=== PATIENT | female | born 1940 | race African-American/Black ===

== ENCOUNTER 2019-11-18 13:51 | Emergency (ER) | payer OTHER ==
[~2019-11-18] VITALS: Ht 165.1 cm; Wt 72.0 kg
[2019-11-18 15:11] LABS: CHLORIDE 110 mEq/L (98-107)
[2019-11-18 15:16] LABS: HEMATOCRIT. 27.1 % (36.0-48.0); HEMOGLOBIN. 9.2 g/dL (12.0-16.0); MEAN CORPUSCULAR HEMOGLOBIN 33.2 pg (28.0-32.0); MEAN CORPUSCULAR VOLUME 97.5 fL (81.0-99.0); RED BLOOD CELL COUNT 2.77 mill/uL (4.2-5.4); RED CELL DISTRIBUTION WIDTH 15.8 % (11.6-14.6)
[2019-11-18 15:18] LABS: D-DIMER 1.17 mg/L FEU (<0.50); PROTHROMBIN TIME 11.3 sec (9.6-11.0)
[2019-11-18 16:02] LABS: PARTIAL THROMBOPLASTIN TIME < 20.0 sec (23.4-31.0)
[2019-11-18 18:48] LABS: PLATELET ESTIMATE NORMAL
[2019-11-18] MEDS ORDERED: IOHEXOL-350 100 ML BOTTLE ONE (18:57)
[2019-11-18 20:09] VITALS: BP 148/78
== END 2019-11-18 20:35 | disposition short-term general hospital (02) ==
LOC: ER 14:21
DX: R07.89 Other chest pain (principal); E11.9 Type 2 diabetes mellitus without complications; Z85.9 Personal history of malignant neoplasm, unspecified
CPT/HCPCS: 36415; 71045; 71275; 80053; 83880; 84484; 85025; 85379; 85610; 85730; 93005; 99285; Q9967

== ENCOUNTER 2020-02-04 12:00 | Emergency (ER) | payer OTHER ==
[~2020-02-04] VITALS: Ht 175.3 cm; Wt 76.0 kg
[2020-02-04 12:56] LABS: HEMATOCRIT. 32.9 % (36.0-48.0); HEMOGLOBIN. 11.2 g/dL (12.0-16.0); MEAN CORPUSCULAR HEMOGLOBIN 31.2 pg (28.0-32.0); MEAN CORPUSCULAR VOLUME 92.1 fL (81.0-99.0); PLATELET 150 x1000/uL (130-400); RED BLOOD CELL COUNT 3.57 mill/uL (4.2-5.4); RED CELL DISTRIBUTION WIDTH 15.6 % (11.6-14.6)
[2020-02-04 12:57] LABS: CHLORIDE 109 mEq/L (98-107)
[2020-02-04 13:00] LABS: INR 1.1; PROTHROMBIN TIME 11.4 sec (9.6-11.0)
[2020-02-04 13:01] LABS: ETHANOL BLOOD < 10 mg/dL
[2020-02-04 13:04] LABS: LDL CHOLESTEROL 69 mg/dL (5-100)
[2020-02-04 13:26] LABS: PLATELET ESTIMATE NORMAL
[2020-02-04] MEDS ORDERED: POTASSIUM CHLORIDE INJ 40 MEQ in DEXT 5% WATER 500 ML IV ONE (13:30)
[2020-02-04] MEDS: ASPIRIN 325MG EC TABLET PO ONE ×2 (13:30→14:45)
[2020-02-04] MEDS ORDERED: IOHEXOL-350 100 ML BOTTLE ONE (14:16)
[2020-02-04] MEDS: POTASSIUM CHLORIDE 20MEQ TABLET SR PO ONE ×2 (14:42→14:45)
[2020-02-04 16:44] VITALS: BP 113/72
== END 2020-02-04 17:07 | disposition short-term general hospital (02) ==
LOC: ER 12:00 → CANBEDREQ 16:54 → ER 17:07
DX: G45.9 Transient cerebral ischemic attack, unspecified (principal); I65.21 Occlusion and stenosis of right carotid artery; E87.6 Hypokalemia; F03.90 Unspecified dementia, unspecified severity, without behavioral disturbance, psychotic disturbance, mood disturbance, and anxiety; I10 Essential (primary) hypertension; E78.00 Pure hypercholesterolemia, unspecified
CPT/HCPCS: 36415; 70450; 70496; 70498; 71045; 80053; 80320; 82962; 83721; 84484; 85025; 85610; 93005; 96365; 99285; J3480; J7060; Q9967; G0480

== ENCOUNTER 2020-02-14 11:29 | Emergency (ER) | payer OTHER ==
[~2020-02-14] VITALS: Ht 172.7 cm; Wt 72.0 kg
[2020-02-14 12:25] LABS: EOSINOPHILS % 0.6 % (0.0-5.0); HEMATOCRIT. 32.2 % (36.0-48.0); HEMOGLOBIN. 10.9 g/dL (12.0-16.0); LYMPHOCYTES % 24.7 % (20.0-50.0); MEAN CORPUSCULAR HEMOGLOBIN 31.3 pg (28.0-32.0); MEAN CORPUSCULAR VOLUME 92.2 fL (81.0-99.0); MEAN PLATELET VOLUME 9.1 fl (7.4-10.4); MONOCYTES % 9.4 % (2.0-8.0); NEUTROPHILS % 64.3 % (40.0-76.0); PLATELET 180 x1000/uL (130-400); RED BLOOD CELL COUNT 3.49 mill/uL (4.2-5.4); RED CELL DISTRIBUTION WIDTH 16.3 % (11.6-14.6)
[2020-02-14 12:33] LABS: CHLORIDE 108 mEq/L (98-107)
[2020-02-14] MEDS ORDERED: POTASSIUM CHLORIDE 20MEQ TABLET SR PO ONE (13:00)
[2020-02-14] MEDS ORDERED: ASPIRIN 325MG EC TABLET PO ONE (13:15)
[2020-02-14] MEDS ORDERED: SODIUM CHLORIDE 0.9% 1,000 ML IV ONE (13:15)
[2020-02-14 15:45] VITALS: BP 153/64
== END 2020-02-14 16:30 | disposition short-term general hospital (02) ==
LOC: ER 11:29 → CANBEDREQ 17:38
DX: R53.1 Weakness (principal); E87.6 Hypokalemia; I10 Essential (primary) hypertension; F03.90 Unspecified dementia, unspecified severity, without behavioral disturbance, psychotic disturbance, mood disturbance, and anxiety; E78.00 Pure hypercholesterolemia, unspecified
CPT/HCPCS: 36415; 70450; 71045; 80053; 84484; 85025; 93005; 99285; J7030

== ENCOUNTER 2020-03-07 02:59 | Emergency (ER) | payer OTHER ==
[~2020-03-07] VITALS: Ht 170.2 cm; Wt 82.0 kg
[2020-03-07] MEDS ORDERED: SODIUM CHLORIDE 0.9% 1,000 ML IV ONE (03:11)
[2020-03-07 03:35] LABS: HEMATOCRIT. 32.8 % (36.0-48.0); HEMOGLOBIN. 11.1 g/dL (12.0-16.0); MEAN CORPUSCULAR HEMOGLOBIN 31.3 pg (28.0-32.0); MEAN CORPUSCULAR VOLUME 92.7 fL (81.0-99.0); MEAN PLATELET VOLUME 9.9 fl (7.4-10.4); PLATELET 111 x1000/uL (130-400); RED BLOOD CELL COUNT 3.54 mill/uL (4.2-5.4); RED CELL DISTRIBUTION WIDTH 16.3 % (11.6-14.6)
[2020-03-07 03:41] LABS: CHLORIDE 112 mEq/L (98-107)
[2020-03-07 03:45] LABS: ETHANOL BLOOD < 10 mg/dL
[2020-03-07 03:49] LABS: CREATINE KINASE 95 IU/L (26-192)
[2020-03-07] MEDS ORDERED: POTASSIUM CHLORIDE INJ 40 MEQ in DEXT 5% WATER 250 ML IV ONE (04:00)
[2020-03-07 04:32] LABS: PLATELET ESTIMATE SLIGHTLY DECREASED
[2020-03-07 06:10] LABS: CLARITY URINE CLOUDY (CLEAR); COLOR URINE YELLOW (YELLOW); KETONES URINE NEGATIVE (NEGATIVE); LEUKOCYTE ESTERASE URINE NEGATIVE (NEGATIVE); NITRITE URINE NEGATIVE (NEGATIVE); OCCULT BLOOD URINE 2+ (NEGATIVE); PH URINE 5.5 (4.5-8.0); PROTEIN URINE 3+ (NEGATIVE); SPECIFIC GRAVITY URINE 1.017 (1.005-1.030)
[2020-03-07 06:24] LABS: *AMPHETAMINES SCREEN URINE NEGATIVE (NEGATIVE); *BARBITURATES SCREEN URINE NEGATIVE (NEGATIVE); *BENZODIAZEPINES SCREEN URINE NEGATIVE (NEGATIVE); *COCAINE SCREEN URINE NEGATIVE (NEGATIVE); METHADONE URINE SCREEN NEGATIVE (NEGATIVE)
[2020-03-07 06:25] LABS: CANNABINOID URINE SCREEN NEGATIVE (NEGATIVE); OPIATES URINE SCREEN NEGATIVE (NEGATIVE); PHENCYCLIDINE URINE SCREEN NEGATIVE (NEGATIVE)
[2020-03-07 10:41] VITALS: BP 141/53
== END 2020-03-07 10:50 | disposition short-term general hospital (02) ==
LOC: ER 02:59
DX: R41.82 Altered mental status, unspecified (principal); E87.6 Hypokalemia; E87.2 Acidosis; I10 Essential (primary) hypertension
CPT/HCPCS: 36415; 70450; 71045; 80053; 80305; 80320; 81003; 82550; 82962; 83605; 83690; 84443; 85025; 93005; 96361; 96365; 96366; 99285; J3480; J7030; J7060; G0480